=== PATIENT | female | born 1960 | race Caucasian/White ===

== ENCOUNTER 2020-06-23 15:10 | Emergency (ER) | payer OTHER ==
[~2020-06-23] VITALS: Ht 157.5 cm; Wt 72.6 kg
[~2020-06-23 15:10] MED LIST: FOLIC ACID PO; LOSA25TA27 PO
[2020-06-23] MEDS ORDERED: MECLIZINE HCL 25 MG TABLET PO ONE (15:30)
[2020-06-23] MEDS ORDERED: IV NORMAL SALINE 1000 ML BAG IV ONE (15:30)
[2020-06-23] MEDS ORDERED: ONDANSETRON 4 MG/2 ML VIAL IV ONE (15:30)
[2020-06-23] MEDS ORDERED: ONDANSETRON 4 MG/2 ML VIAL ONE (15:47)
[2020-06-23] MEDS ORDERED: MECLIZINE HCL 25 MG TABLET ONE (15:47)
[2020-06-23 15:50] LABS: BASOPHILS % (AUTO) 0.6 % (0.0-2.0); EOSINOPHILS % (AUTO) 0.2 % (0.0-7.0); HEMATOCRIT 41.9 % (31.2-41.9); HEMOGLOBIN 14.1 g/dL (10.9-14.3); LYMPHOCYTES # (AUTO) 1.2 K/uL (20.0-40.0); LYMPHOCYTES % (AUTO) 16.6 % (20.5-51.5); MEAN CORPUSCULAR HGB CONC 34 g/dL (32.3-35.6); MONOCYTES # (AUTO) 0.4 K/uL (2.0-10.0); MONOCYTES % (AUTO) 5.6 % (0.0-11.0); NEUTROPHILS # (AUTO) 5.5 K/uL (1.8-8.9); PLATELET COUNT (AUTO) 248 K/uL (179-408); RED BLOOD CELL COUNT(AUTO) 4.14 MIL/uL (3.63-4.92); WHITE BLOOD COUNT (AUTO) 7.1 K/uL (3.8-11.8)
[2020-06-23 15:56] LABS: CREATININE 0.7 mg/dL (0.6-1.3); POTASSIUM 4.6 mmol/L (3.5-5.1)
[2020-06-23 16:02] LABS: BILIRUBIN,TOTAL 0.3 mg/dL (0.2-1.0); TOTAL PROTEIN, SERUM 7.8 g/dL (6.4-8.2)
[2020-06-23 16:44] LABS: *BILIRUBIN,URIN NEGATIVE (NEGATIVE); *BLOOD, URINE TRACE (NEGATIVE); *COLOR,URINE YELLOW (YELLOW); *KETONES,URINE NEGATIVE (NEGATIVE); *UROBILINOGEN,URINE 0.2 E.U./dl (NORMAL); LEUKOCYTE ESTERASE ,URINE NEGATIVE (NEGATIVE); NITRITE, URINE NEGATIVE (NEGATIVE); UGLUCOSE NEGATIVE (NEGATIVE)
[2020-06-23 16:52] LABS: *CLARITY,URINE SLIGHTLY HAZY (CLEAR); BACTERIA,URINE FEW /HPF (NONE SEEN); SQUAMOUS EPITHELIAL CELL,UR FEW /HPF (NONE SEEN)
[2020-06-23] MEDS ORDERED: MECL-159 PO (17:13)
--- NOTE | 2020-06-23 17:23 | NUR ---
Patient discharged to home in stable condition. Written and verbal after care instructions given. Patient verbalizes understanding of instructions. Stressed follow up or return to ER for worsening s/s.
--- NOTE | 2020-06-23 17:23 | NUR ---
IV removed. Catheter intact and site benign. Pressure and 4x4 gauze applied to site. No bleeding noted.
[2020-06-23 17:24] VITALS: BP 156/94
[2020-06-23 18:01] LABS: ETHANOL < 3 MG/DL (0-0)
== END 2020-06-23 17:24 | disposition home or self-care (01) ==
LOC: ER 15:10
DX: R42 Dizziness and giddiness (principal); I10 Essential (primary) hypertension; Z88.0 Allergy status to penicillin
CPT/HCPCS: 36415; 70450; 80053; 80320; 81001; 84484; 85025; 93005; 96361; 96374; 99285; J2405; 70030-TC; A4663; G0480; J7030; J8597

== ENCOUNTER 2021-03-03 09:07 | Emergency (ER) | payer OTHER ==
[~2021-03-03] VITALS: Ht 157.5 cm; Wt 70.3 kg
[~2021-03-03 09:07] MED LIST changes: +MECL-159 PO
--- NOTE | 2021-03-03 09:30 | NUR ---
PATIENT WAS MSE BY DR DUNHAM IN ROOM 04A.
[2021-03-03 09:54] LABS: HEMATOCRIT 42.7 % (31.2-41.9); MEAN CORPUSCULAR HEMOGLOBIN 33.4 uug (24.7-32.8); MEAN CORPUSCULAR VOLUME 100.2 fL (75.5-95.3); PLATELET COUNT (AUTO) 226 K/uL (179-408)
[2021-03-03 10:05] LABS: CREATININE 0.7 mg/dL (0.6-1.3); MAGNESIUM 2.2 mg/dL (1.8-2.4); PHOSPHOROUS 3.4 mg/dL (2.5-4.9); POTASSIUM 4.1 mmol/L (3.5-5.1)
[2021-03-03 10:11] LABS: BILIRUBIN,DIRECT 0.1 mg/dL (0.0-0.2); BILIRUBIN,TOTAL 0.5 mg/dL (0.2-1.0)
[2021-03-03 10:15] LABS: THYROID STIMULATING HORMONE 1.878 mIU/mL (0.358-3.740)
[2021-03-03 10:33] VITALS: BP 145/89
== END 2021-03-03 10:34 | disposition home or self-care (01) ==
LOC: ER 09:07
DX: D72.819 Decreased white blood cell count, unspecified (principal); R23.2 Flushing; I10 Essential (primary) hypertension; Z79.899 Other long term (current) drug therapy; Z88.0 Allergy status to penicillin
CPT/HCPCS: 36415; 70030-TC; 83735; 83789; 84100; 84443; 85025; A4663

== ENCOUNTER 2022-07-14 15:21 | Emergency (ER) | payer OTHER ==
[~2022-07-14] VITALS: Ht 157.5 cm; Wt 70.3 kg
--- NOTE | 2022-07-14 15:40 | NUR ---
Pt was triaged and is waiting in a chair outside of the ER, no ER beds available.
[2022-07-14] MEDS ORDERED: IV NORMAL SALINE 1000 ML BAG IV ONE (17:30)
[2022-07-14 18:37] LABS: HEMATOCRIT 37.1 % (31.2-41.9); MEAN CORPUSCULAR HEMOGLOBIN 32.5 uug (24.7-32.8); MEAN CORPUSCULAR VOLUME 95.9 fL (75.5-95.3); PLATELET COUNT (AUTO) 238 K/uL (179-408)
[2022-07-14] MEDS ORDERED: ONDA4TAB5 PO (18:41)
--- NOTE | 2022-07-14 18:41 | NUR ---
Pt states feeling better after receiving the fluid.
[2022-07-14 18:57] LABS: BILIRUBIN,TOTAL 0.4 mg/dL (0.2-1.0); CREATININE 0.6 mg/dL (0.6-1.3); POTASSIUM 3.4 mmol/L (3.5-5.1); TOTAL PROTEIN, SERUM 7.2 g/dL (6.4-8.2)
[2022-07-14 22:11] VITALS: BP 110/81
== END 2022-07-14 21:53 | disposition home or self-care (01) ==
LOC: ER 15:21
DX: U07.1 COVID-19 (principal); E86.0 Dehydration; R00.0 Tachycardia, unspecified; R11.2 Nausea with vomiting, unspecified
CPT/HCPCS: 99285; 96360; 71045; 80053; 85025; 36415; 93005; J7040; A4663

== ENCOUNTER 2023-01-12 19:50 | Emergency (ER) | payer OTHER ==
[~2023-01-12] VITALS: Ht 157.5 cm; Wt 72.6 kg
[~2023-01-12 19:50] MED LIST changes: +ONDA4TAB5 PO
[2023-01-12 20:46] LABS: BASOPHILS # (AUTO) 0.1 K/UL (0.0-0.2); BASOPHILS % (AUTO) 0.9 % (0.0-2.0); EOSINOPHILS % (AUTO) 0.3 % (0.0-7.0); HEMATOCRIT 38.4 % (31.2-41.9); HEMOGLOBIN 13.2 g/dL (10.9-14.3); LYMPHOCYTES # (AUTO) 2.3 K/uL (0.8-4.8); LYMPHOCYTES % (AUTO) 33.6 % (20.5-51.5); MEAN CORPUSCULAR HEMOGLOBIN 33.4 uug (24.7-32.8); MEAN CORPUSCULAR HGB CONC 34 g/dL (32.3-35.6); MEAN CORPUSCULAR VOLUME 97.4 fL (75.5-95.3); MONOCYTES # (AUTO) 0.4 K/uL (0.1-1.30); MONOCYTES % (AUTO) 6.2 % (0.0-11.0); PLATELET COUNT (AUTO) 267 K/uL (179-408); RED BLOOD CELL COUNT(AUTO) 3.95 MIL/uL (3.63-4.92); RED CELL DISTRIBUTION WIDTH 13.4 % (12.3-17.7); WHITE BLOOD COUNT (AUTO) 6.7 K/uL (3.8-11.8)
[2023-01-12 20:57] LABS: DIFFERENTIAL COMMENT 1
[2023-01-12 21:05] LABS: *BILIRUBIN,URIN NEGATIVE (NEGATIVE); *BLOOD, URINE 1+ (NEGATIVE); *CLARITY,URINE CLEAR (CLEAR); *COLOR,URINE YELLOW (YELLOW); *KETONES,URINE NEGATIVE (NEGATIVE); *PROTEIN,URINE TRACE (NEGATIVE); *UROBILINOGEN,URINE 0.2 E.U./dl (NORMAL); LEUKOCYTE ESTERASE ,URINE 1+ (NEGATIVE); NITRITE, URINE NEGATIVE (NEGATIVE); UGLUCOSE NEGATIVE (NEGATIVE)
[2023-01-12 21:07] LABS: CALCIUM 9.4 mg/dL (8.5-10.1); CREATININE 0.6 mg/dL (0.6-1.3); POTASSIUM 3.9 mmol/L (3.5-5.1)
[2023-01-12] MEDS ORDERED: CLON0.1T PO (21:36)
[2023-01-12] MEDS ORDERED: FLAS1KIT2 TP (21:36)
[2023-01-12] MEDS ORDERED: FLAS1EAC2 MC (21:36)
[2023-01-12 21:37] LABS: BACTERIA,URINE MODERATE /HPF (NONE SEEN); SQUAMOUS EPITHELIAL CELL,UR MODERATE /HPF (NONE SEEN)
[2023-01-12] MEDS ORDERED: SULF1TAB48 PO (21:49)
[2023-01-12] MEDS ORDERED: SULFAMETH/TRIMETH 800/160 MG TABLET ONE (21:55)
[2023-01-12] MEDS ORDERED: SULFAMETH/TRIMETH 800/160 MG TABLET PO ONE (22:00)
[2023-01-12 22:08] VITALS: BP 155/88; TEMP 98.5; O2SAT 98
== END 2023-01-12 22:10 | disposition home or self-care (01) ==
LOC: ER 19:56
DX: I10 Essential (primary) hypertension (principal); N39.0 Urinary tract infection, site not specified; Z88.0 Allergy status to penicillin; Z79.899 Other long term (current) drug therapy
CPT/HCPCS: 36415; 85025; A4663

== ENCOUNTER 2024-12-24 11:31 | Emergency (ER) | payer OTHER ==
[~2024-12-24] VITALS: Ht 157.5 cm; Wt 63.5 kg
[~2024-12-24 11:31] MED LIST changes: +CLON0.1T PO; +FLAS1EAC2 MC; +FLAS1KIT2 TP; +SULF1TAB48 PO
[2024-12-24 11:43] VITALS: BP 136/86
[2024-12-24] MEDS ORDERED: KETOROLAC TROMETHAMINE 15 MG INJ ONE (12:13)
[2024-12-24] MEDS: KETOROLAC TROMETHAMINE 15 MG INJ IM ONE (12:19)
[2024-12-24] MEDS ORDERED: IBUP-1955 PO (12:33)
[2024-12-24] MEDS ORDERED: BENZ-13 PO (12:33)
[2024-12-24 13:02] VITALS: BP 136/86; TEMP 97.8; O2SAT 95
== END 2024-12-24 13:02 | disposition home or self-care (01) ==
LOC: ER 11:31
DX: J06.9 Acute upper respiratory infection, unspecified (principal); Z79.899 Other long term (current) drug therapy; Z88.0 Allergy status to penicillin; Z20.822 Contact with and (suspected) exposure to COVID-19
CPT/HCPCS: 99283; 87426; 87804 ×2; 96372; J1885; A4606; A4663